=== PATIENT | female | born 1955 | race Caucasian/White ===

== ENCOUNTER → 2017-01-11 | Outpatient (CLI) | payer OTHER ==
--- NOTE | 2017-01-11 16:44 | REP ---
BILATERAL RIB SERIES: Four views of bilateral ribs performed. There is no fracture or bone lesion identified. An accompanying view of the chest demonstrates no evidence of acute pulmonary disease. The heart is normal in size. There is mild calcification of the thoracic aorta. IMPRESSION: No evidence of rib fracture bilaterally. Signed by Rashid Sims MD 01/11/2017 07:24 P
== END ==
LOC: M WUC 15:45
PROVIDERS: ATTEND Physician Assistant
DX: S20.20XA Contusion of thorax, unspecified, initial encounter (principal); V89.2XXA Person injured in unspecified motor-vehicle accident, traffic, initial encounter; X58.XXXA Exposure to other specified factors, initial encounter; Y93.9 Activity, unspecified; Y92.9 Unspecified place or not applicable; Y99.8 Other external cause status

== ENCOUNTER → 2017-06-04 | Outpatient (CLI) | payer OTHER | LOC: M WHC 15:19 | DX: Z12.31 Encounter for screening mammogram for malignant neoplasm of breast (principal); Z80.3 Family history of malignant neoplasm of breast; Z79.3 Long term (current) use of hormonal contraceptives; Z78.0 Asymptomatic menopausal state; Z86.018 Personal history of other benign neoplasm | CPT/HCPCS: 77067 ==

== ENCOUNTER → 2017-06-13 | Outpatient (CLI) | payer OTHER | LOC: M WUC 08:41 | DX: M50.321 Other cervical disc degeneration at C4-C5 level (principal); M50.322 Other cervical disc degeneration at C5-C6 level | CPT/HCPCS: 72052 ==

== ENCOUNTER 2017-11-27 08:09 | Day surgery (SDC) | payer OTHER ==
[2017-11-27] MEDS: NS 1,000 ML IV (08:34)
[2017-11-27] MEDS ORDERED: PROPOFOL 500 MG/50 ML VIAL As Ordered (09:22)
[2017-11-27] MEDS ORDERED: LIDOCAINE 2% INJ 100 MG/5 ML SDV (FOR ANES.) As Ordered (09:22)
== END 2017-11-27 10:13 | disposition home or self-care (01) ==
LOC: M OPP 08:09
DX: Z12.11 Encounter for screening for malignant neoplasm of colon (principal); K57.30 Diverticulosis of large intestine without perforation or abscess without bleeding; D17.5 Benign lipomatous neoplasm of intra-abdominal organs; K63.89 Other specified diseases of intestine; E78.5 Hyperlipidemia, unspecified; Z78.0 Asymptomatic menopausal state; Z79.899 Other long term (current) drug therapy
CPT/HCPCS: 45378

== ENCOUNTER 2018-04-29 19:39 | Emergency (ER) | payer OTHER ==
[~2018-04-29] VITALS: Ht 167.6 cm; Wt 63.6 kg
[~2018-04-29 19:39] MED LIST: ATOR80TA59 PO
[2018-04-29] MEDS ORDERED: MECLIZINE 25 MG TABLET PO ONE ×2 (20:15→22:00)
[2018-04-29] MEDS ORDERED: ONDANSETRON 4 MG ORAL DISINTEGRATING TAB (Q0162 PER 1MG) PO ONE (20:15)
[2018-04-29] MEDS ORDERED: MECL1CHW2 PO (21:45)
[2018-04-29] MEDS ORDERED: ZOFR4TAB14 PO (21:45)
[2018-04-29 22:27] VITALS: BP 114/55
== END 2018-04-29 22:28 | disposition home or self-care (01) ==
LOC: M ED 19:39
DX: R42 Dizziness and giddiness (principal); R11.2 Nausea with vomiting, unspecified; R39.198 Other difficulties with micturition; E78.5 Hyperlipidemia, unspecified; Z79.899 Other long term (current) drug therapy
CPT/HCPCS: 81001; 87086; 99284; Q0162

== ENCOUNTER → 2018-11-04 | Outpatient (CLI) | payer OTHER ==
[~2018-11-04] MED LIST changes: +MECL1CHW PO; +ZOFR4TAB14 PO
--- NOTE | 2018-11-04 16:21 | REPMRS ---
Patient History The patient states she has not had a clinical breast exam in over a year. Patient is postmenopausal. Family history of breast cancer at age 68 in mother. Benign excisional biopsy of the left breast. Took hormonal contraceptives for 9 years. 3D TOMOSYNTHESIS WAS PERFORMED. The [facility] lifetime risk for breast cancer is 12.3%. Digital Woman Screen Mammo: November 04, 2018 - Exam #: [id number] Bilateral CC and MLO view(s) were taken. Technologist: Rosy Ruggiero, Technologist Prior study comparison: June 04, 2017, digital woman screen mammo performed at [facility]. December 09, 2014, digital woman screen mammo performed at [facility]. FINDINGS: There are scattered fibroglandular densities. There is a fairly symmetric fibroglandular pattern in both breasts. There has been no interval development of masses, areas of architectural distortion or clusters of microcalcifications typical of malignancy. Assessment: BI-RADS/ACR category 2 mammogram. Benign Findings. Recommendation Routine screening mammogram of both breasts in 1 year (for women over age 40). This mammogram was interpreted with the aid of an FDA-approved computer-aided dectection system. Electronically Signed By: Rashid Sims MD 11/04/18 1721
== END ==
LOC: M WHC 12:59
PROVIDERS: ATTEND Family Medicine
DX: Z12.31 Encounter for screening mammogram for malignant neoplasm of breast (principal)

== ENCOUNTER → 2018-11-29 | Outpatient (REF) | payer OTHER | LOC: M LAB REF 09:46 | PROVIDERS: ATTEND Physician Assistant | DX: R30.0 Dysuria (principal) ==

== ENCOUNTER → 2019-05-28 | Outpatient (CLI) | payer OTHER ==
--- NOTE | 2019-05-28 16:50 | REP ---
Right hand series: Four views. History: Contusion. Findings: There is an obliquely oriented fracture through the mid shaft of the fifth metacarpal with 3-5 mm of override and associated soft-tissue swelling. There is diffuse osteopenia. Mild osteoarthritis is seen at the first carpometacarpal articulation. Impression: Obliquely oriented midshaft fracture right fifth metacarpal with some override. Electronically Signed by Messi Cunha MD 05/28/2019 04:42 P
== END ==
LOC: M LRY 16:11
PROVIDERS: ATTEND Physician Assistant Medical
DX: S62.326A Displaced fracture of shaft of fifth metacarpal bone, right hand, initial encounter for closed fracture (principal); X58.XXXA Exposure to other specified factors, initial encounter; Y92.9 Unspecified place or not applicable

== ENCOUNTER → 2020-02-08 | Outpatient (CLI) | payer OTHER ==
--- NOTE | 2020-02-08 14:47 | REPMRS ---
Patient History The patient states she had a clinical breast exam in February 2019. Family history of breast cancer at age 68 in mother. Benign excisional biopsy of the left breast. Took hormonal contraceptives for 9 years. 3D TOMOSYNTHESIS WAS PERFORMED. [facility] VOLPARA DENSITY C. Digital Woman Screen Mammo: February 08, 2020 - Exam #: [id number] Bilateral CC and MLO view(s) were taken. Technologist: RT Rylie Prior study comparison: November 04, 2018, bilateral digital woman screen mammo performed at [facility]. June 04, 2017, digital woman screen mammo performed at [facility]. FINDINGS: There are scattered fibroglandular densities. There has been no change in the appearance of the mammogram from the prior studies. There is a mild amount of residual fibroglandular tissue which is fairly symmetric. There is no interval development of dominant mass, architectural distortion, or clustered microcalcification suggestive of malignancy. Assessment: BI-RADS/ACR category 1 mammogram. Negative Mammogram. Recommendation Routine screening mammogram in 1 year (for women over age 40). This mammogram was interpreted with the aid of an FDA-approved computer-aided dectection system. Electronically Signed By: Rashid Sims MD 02/08/20 0029
== END ==
LOC: M WHC 13:52
PROVIDERS: ATTEND Family Medicine
DX: Z12.31 Encounter for screening mammogram for malignant neoplasm of breast (principal); Z80.3 Family history of malignant neoplasm of breast; Z92.0 Personal history of contraception

== ENCOUNTER → 2020-11-03 | Outpatient (CLI) | payer OTHER ==
--- NOTE | 2020-11-03 14:31 | REP ---
INDICATION: DISP FX OF OLECRAN PRO W/O INTARTIC EXTN RIGHT ULN. COMPARISON: None. TECHNIQUE: Helical scanning is acquired and 2 mm axial images are re-formatted. Coronal and sagittal MPR images are generated. Scan is acquired through overlying splint material. FINDINGS: No comparison radiographs. There is diffuse periarticular distal arm and proximal forearm soft tissue swelling. There is a complex fracture at the elbow. The proximal radius has an intact appearance. There is a intra-articular transversely oriented fracture through the base of the olecranon process and the olecranon fracture fragment is displaced proximally and rotated somewhat. The olecranon per fracture shows approximately 2.5 cm of diastasis. There is also a supracondylar fracture involving the trochlear portion of the distally humerus and the capitellum. There is a large rotated displaced capitellar fracture fragment. This fragment is displaced superiorly and anteriorly. It measures 1.9 cm in diameter. This anterior and displaced distal humeral fracture also includes the anterior portion of the capitellum as well. The more posterior portion of the distal humerus including the medial and lateral epicondyles are relatively intact. The fracture extends to the lateral epicondyle. IMPRESSION: Comminuted displaced intra-articular fractures of the proximal ulna and distal humerus with fragments involving the capitellum and trochlear portions of the distal humerus. Diffuse soft tissue swelling. <Electronically signed by Erickson Cunha > 11/03/20 2276
== END ==
LOC: M RAD 13:27
PROVIDERS: ATTEND Physician Assistant
DX: S52.021A Displaced fracture of olecranon process without intraarticular extension of right ulna, initial encounter for closed fracture (principal); X58.XXXA Exposure to other specified factors, initial encounter; Y92.89 Other specified places as the place of occurrence of the external cause; Y93.89 Activity, other specified; Y99.8 Other external cause status

== ENCOUNTER → 2021-10-26 | Outpatient (CLI) | payer MEDICARE | LOC: M WHC 08:43 | PROVIDERS: ATTEND Family Medicine | DX: Z12.31 Encounter for screening mammogram for malignant neoplasm of breast (principal) ==

== ENCOUNTER → 2022-06-21 | Outpatient (CLI) | payer MEDICARE ==
[2022-06-21 11:33] LABS: BLOOD UREA NITROGEN 13 MG/DL (9-23); CREATININE FOR GFR 0.79 MG/DL (0.55-1.30); GLOMERULAR FILTRATION RATE > 60.0 (>45)
== END ==
LOC: M LAB 10:15
PROVIDERS: ATTEND Surgery
DX: Z01.810 Encounter for preprocedural cardiovascular examination (principal); K43.9 Ventral hernia without obstruction or gangrene

== ENCOUNTER → 2022-06-25 | Outpatient (CLI) | payer MEDICARE ==
[~2022-06-25] MED LIST changes: +GASTROGRAFIN SOLUTION 30ML As Ordered ONE; +ISOVUE-370 76% 100ML VIAL As Ordered ONE
== END ==
LOC: M RAD 07:31
PROVIDERS: ATTEND Surgery
DX: K43.9 Ventral hernia without obstruction or gangrene (principal); K76.89 Other specified diseases of liver; K80.20 Calculus of gallbladder without cholecystitis without obstruction; N28.1 Cyst of kidney, acquired; K57.30 Diverticulosis of large intestine without perforation or abscess without bleeding; I25.10 Atherosclerotic heart disease of native coronary artery without angina pectoris; M47.816 Spondylosis without myelopathy or radiculopathy, lumbar region
CPT/HCPCS: 74178; Q9963; Q9967

== ENCOUNTER → 2022-08-08 | Outpatient (CLI) | payer MEDICARE ==
[~2022-08-08] MED LIST changes: -GASTROGRAFIN SOLUTION 30ML As Ordered ONE; -ISOVUE-370 76% 100ML VIAL As Ordered ONE
== END ==
LOC: M WHC 10:28
PROVIDERS: ATTEND Nurse Practitioner Family
DX: Z12.31 Encounter for screening mammogram for malignant neoplasm of breast (principal)

== ENCOUNTER → 2022-12-03 | Outpatient (CLI) | payer MEDICARE | LOC: M WHC 08:04 | PROVIDERS: ATTEND Nurse Practitioner Family | DX: R92.2 Inconclusive mammogram (principal); M81.0 Age-related osteoporosis without current pathological fracture; Z80.3 Family history of malignant neoplasm of breast ==

== ENCOUNTER → 2022-12-12 | Outpatient (CLI) | payer MEDICARE | LOC: M WHC 08:01 | PROVIDERS: ATTEND Nurse Practitioner Family | DX: R92.8 Other abnormal and inconclusive findings on diagnostic imaging of breast (principal) | CPT/HCPCS: 77065; G0279 ==

== ENCOUNTER 2023-11-02 09:55 | Emergency (ER) | payer MEDICARE ==
[~2023-11-02] VITALS: Ht 167.6 cm; Wt 57.5 kg
[2023-11-02] MEDS: NS 500 ML IV ONE (10:50)
[2023-11-02 11:40] LABS: BASO % 0.4 % (0.0-1.0); EOS # 0.1 10^3/uL (0.0-0.5); EOS % 1.2 % (0.0-3.0); HEMOGLOBIN 11.2 g/dl (12.0-15.5); LYMPH # 0.6 10^3/uL (1.5-5.0); LYMPH % 12.6 % (24.0-44.0); MEAN CORPUSCULAR HEMOGLOBIN 32.5 pg (27.0-33.0); MEAN CORPUSCULAR HGB CONC 33.9 g/dl (32.0-36.5); MEAN CORPUSCULAR VOLUME 95.7 fl (80.0-96.0); MONO # 0.3 10^3/uL (0.0-0.8); MONO % 6.7 % (2.0-8.0); NEUTROPHILS % 78.7 % (36.0-66.0); PLATELET COUNT, AUTOMATED 307 10^3/uL (150-450); RED BLOOD COUNT 3.45 10^6/uL (4.00-5.40); WHITE BLOOD COUNT 5.1 10^3/uL (4.0-10.0)
[2023-11-02 11:50] LABS: INR 1.23; PARTIAL THROMBOPLASTIN TIME 35.1 SECONDS (24.8-34.2); PROTHROMBIN TIME 15.2 SECONDS (12.5-14.5)
[2023-11-02 12:05] LABS: LIPASE 41 U/L (12-53)
[2023-11-02 12:07] LABS: AMYLASE 89 U/L (30-118); CK-MB VALUE MASS < 1.0 NG/ML (<3.6)
[2023-11-02 12:08] LABS: ALBUMIN 3.1 G/DL (3.2-5.2); ALKALINE PHOSPHATASE 98 U/L (46-116); ALT/SGPT 16 U/L (7.0-40); AST/SGOT 22 U/L (<34); BILIRUBIN,DIRECT 0.3 MG/DL (<0.4); BILIRUBIN,TOTAL 1.1 MG/DL (0.3-1.2); BLOOD UREA NITROGEN 16 MG/DL (9-23); CALCIUM LEVEL 8.2 MG/DL (8.3-10.6); CARBON DIOXIDE LEVEL 28 MMOL/L (20-31); CHLORIDE LEVEL 104 MMOL/L (98-107); CREATININE FOR GFR 0.72 MG/DL (0.55-1.30); GLOMERULAR FILTRATION RATE > 60.0 (>45); GLUCOSE, FASTING 93 MG/DL (74-106); SODIUM LEVEL 136 MMOL/L (136-145); TOTAL PROTEIN 6.4 G/DL (5.7-8.2)
[2023-11-02 12:09] LABS: CPK CREATINE PHOSPHOKINASE 96 U/L (34-145); MB/CK RELATIVE INDEX 1.04 (< OR =4)
[2023-11-02] MEDS ORDERED: ISOVUE-370 76% 100ML VIAL As Ordered ONE (13:21)
[2023-11-02] MEDS ORDERED: OMEP40CA4 PO (15:55)
[2023-11-02 16:39] VITALS: BP 118/65; TEMP 97.5; O2SAT 100
== END 2023-11-02 16:46 | disposition home or self-care (01) ==
LOC: M ED 09:55
DX: K57.91 Diverticulosis of intestine, part unspecified, without perforation or abscess with bleeding (principal); D18.00 Hemangioma unspecified site; E78.5 Hyperlipidemia, unspecified; R94.31 Abnormal electrocardiogram [ECG] [EKG]; Z79.899 Other long term (current) drug therapy
CPT/HCPCS: 36415; 70450; 71045; 74177; 80047; 80048; 80076; 82150; 82550; 82553; 83605; 83690; 84484; 85025; 85610; 85730; 86850; 86900; 86901; 93005; 93041; 99285; Q9967

== ENCOUNTER → 2023-11-05 | Outpatient (REF) | payer MEDICARE ==
[~2023-11-05] MED LIST changes: +OMEP40CA4 PO
[2023-11-05 15:06] LABS: FERRITIN 67.4 NG/ML (7.3-270.7)
[2023-11-05 15:07] LABS: FOLATE 17.6 NG/ML (>5.4)
== END ==
LOC: M LAB REF 14:10
PROVIDERS: ATTEND Family Medicine
DX: D64.9 Anemia, unspecified (principal)

== ENCOUNTER → 2023-11-15 | Outpatient (CLI) | payer MEDICARE | LOC: M CARPUL 10:06 | PROVIDERS: ATTEND Family Medicine | DX: R55 Syncope and collapse (principal); I08.2 Rheumatic disorders of both aortic and tricuspid valves ==

== ENCOUNTER 2023-12-18 09:01 | Day surgery (SDC) | payer MEDICARE ==
[~2023-12-18] VITALS: Ht 167.6 cm; Wt 55.7 kg
[~2023-12-18 09:01] MED LIST changes: +D-101000 PO; +MV/F1CAP PO; +NS 1,000 ML IV ONE
[2023-12-18] MEDS ORDERED: fentaNYL 100 MCG/2 ML INJECTION As Ordered ONE (09:45)
[2023-12-18] MEDS ORDERED: LIDOCAINE 2% 100MG/5ML SDV (FOR ANES.) As Ordered ONE (09:46)
[2023-12-18] MEDS ORDERED: propofoL 200 MG/20 ML VIAL As Ordered ONE (09:46)
[2023-12-18] MEDS ORDERED: GLYCOPYRROLATE INJ 0.2 MG/ML 2 ML VIAL As Ordered ONE (09:48)
[2023-12-18 10:15] VITALS: TEMP 98.4
[2023-12-18 10:36] VITALS: BP 111/57; O2SAT 99
== END 2023-12-18 10:43 | disposition home or self-care (01) ==
LOC: M OPP 09:01
PROVIDERS: ATTEND Surgery
DX: D17.5 Benign lipomatous neoplasm of intra-abdominal organs (principal); K57.30 Diverticulosis of large intestine without perforation or abscess without bleeding; K92.1 Melena; K44.9 Diaphragmatic hernia without obstruction or gangrene; K29.70 Gastritis, unspecified, without bleeding; R00.1 Bradycardia, unspecified; Z79.02 Long term (current) use of antithrombotics/antiplatelets; Z79.899 Other long term (current) drug therapy
CPT/HCPCS: 43239; 45378; 88305; J1596; J3010

== ENCOUNTER → 2023-12-25 | Outpatient (CLI) | payer MEDICARE ==
[~2023-12-25] MED LIST changes: -NS 1,000 ML IV ONE
== END ==
LOC: M WHC 11:22
PROVIDERS: ATTEND Family Medicine
DX: Z12.31 Encounter for screening mammogram for malignant neoplasm of breast (principal)

== ENCOUNTER 2024-11-16 05:43 | Emergency (ER) | payer MEDICARE ==
[~2024-11-16] VITALS: Ht 167.6 cm; Wt 56.4 kg
[2024-11-16 06:22] LABS: BASO # 0.0 10^3/uL (0.0-0.2); BASO % 0.4 % (0.0-1.0); EOS # 0.2 10^3/uL (0.0-0.5); EOS % 3.3 % (0.0-3.0); LYMPH # 0.7 10^3/uL (1.5-5.0); LYMPH % 14.1 % (24.0-44.0); MONO # 0.3 10^3/uL (0.0-0.8); MONO % 5.8 % (2.0-8.0); NEUTROPHILS # 4.0 10^3/uL (1.5-8.5); NEUTROPHILS % 76.2 % (36.0-66.0); PLATELET COUNT, AUTOMATED 206 10^3/uL (150-450)
[2024-11-16] MEDS: ONDANSETRON 4MG 2ML VIAL IV ONE (06:25)
[2024-11-16 06:51] LABS: ALT/SGPT 18 U/L (7.0-40); AST/SGOT 32 U/L (<34); CALCIUM LEVEL 8.8 MG/DL (8.3-10.6); CARBON DIOXIDE LEVEL 26 MMOL/L (20-31); CHLORIDE LEVEL 103 MMOL/L (98-107); CREATININE FOR GFR 0.71 MG/DL (0.55-1.30); GLOMERULAR FILTRATION RATE > 90.0 (>45); POTASSIUM SERUM 4.0 MMOL/L (3.5-5.1); SODIUM LEVEL 143 MMOL/L (136-145)
[2024-11-16 07:14] LABS: MAGNESIUM LEVEL 2.0 MG/DL (1.8-2.4)
[2024-11-16] MEDS ORDERED: ISOVUE-370 76% 100 ML VIAL As Ordered ONE (07:17)
[2024-11-16 08:15] VITALS: BP 105/56; O2SAT 97
[2024-11-16] MEDS ORDERED: ONDA-282 PO (08:16)
[2024-11-16] MEDS ORDERED: SUCR1TA PO (08:16)
[2024-11-16] MEDS ORDERED: OMEP40CA4 PO (08:16)
[2024-11-16 08:32] VITALS: TEMP 97.1
== END 2024-11-16 08:38 | disposition home or self-care (01) ==
LOC: M ED 05:43
DX: K27.9 Peptic ulcer, site unspecified, unspecified as acute or chronic, without hemorrhage or perforation (principal); K52.9 Noninfective gastroenteritis and colitis, unspecified; Z79.899 Other long term (current) drug therapy
CPT/HCPCS: 74177; 80053; 83605; 83690; 83735; 85025; 93005; 96374; 99284; J2405; Q9967

== ENCOUNTER → 2024-12-31 | Outpatient (CLI) | payer MEDICARE ==
[~2024-12-31] MED LIST changes: +ONDA-282 PO; +SUCR1TA PO
== END ==
LOC: M WHC 09:08
PROVIDERS: ATTEND Family Medicine
DX: Z12.31 Encounter for screening mammogram for malignant neoplasm of breast (principal); R92.313 Mammographic fatty tissue density, bilateral breasts